=== PATIENT | male | born 1985 | race American Indian/Alaskan Native ===

== ENCOUNTER → 2017-11-30 | Outpatient (CLI) | payer OTHER ==
[~2017-11-30] MED LIST: ASPI325EC PO; BUSP10 PO; CLIN150 PO; HYDACE5 PO; HYDMOR2 PO; LISI5 PO; Levaquin750 MG PO; MELO7.5 PO; OXYACE5T PO; PARO10 PO; RXCLIN PO; RXHYDACE PO; Zofran Odt4 MG SL; [UNRECOGNIZED DRUG - REMARK]
[2017-11-30 14:47] LABS: BASOPHILS ABSOLUTE AUTO 0.03 K/mm3 (0.00-0.23); BASOPHILS PERCENT AUTO 1 % (0-2); EOSINOPHILS ABSOLUTE AUTO 0.03 K/mm3 (0.00-0.68); EOSINOPHILS PERCENT AUTO 1 % (0-6); Hematocrit 41.6 % (37.0-53.0); IMMATURE GRAN ABSOLUTE AUTO 0.01 K/mm3 (0.00-0.10); IMMATURE GRAN PERCENT AUTO 0 % (0-1); LYMPHOCYTES ABSOLUTE AUTO 1.48 K/mm3 (0.84-5.20); LYMPHOCYTES PERCENT AUTO 30 % (21-46); MONOCYTES ABSOLUTE AUTO 0.45 K/mm3 (0.16-1.47); MONOCYTES PERCENT AUTO 9 % (4-13); Mean Corpuscular HGB 30.7 pg (26.0-34.0); Mean Corpuscular HGB Conc 36.1 g/dL (31.5-36.5); Mean Corpuscular Volume 85 fL (80-100); Mean Platelet Volume 9.3 fL (9.1-12.4); NEUTROPHILS ABSOLUTE AUTO 2.93 K/mm3 (1.96-9.15); NEUTROPHILS PERCENT AUTO 60 % (41-73); Platelet Count 231 K/mm3 (150-400); RDW Coefficient Variation 12.4 % (11.7-14.2); RDW Standard Deviation 37.8 fL (35.1-46.3); Red Blood Cell Count 4.89 M/mm3 (4.30-5.90); White Blood Cell Count 4.93 K/mm3 (4.00-11.30)
== END | disposition home or self-care (01) ==
LOC: LAB EV 14:44
PROVIDERS: Family Medicine
DX: K62.5 Hemorrhage of anus and rectum (principal)
CPT/HCPCS: 85025

== ENCOUNTER → 2020-03-18 | Outpatient (CLI) | payer OTHER | END | disposition home or self-care (01) | LOC: LAB SHORT 14:52 → LAB EV 14:52 | DX: J02.9 Acute pharyngitis, unspecified (principal); Z20.828 Contact with and (suspected) exposure to other viral communicable diseases | CPT/HCPCS: U0003 ==

== ENCOUNTER 2021-07-07 16:17 | Observation (INO) | payer OTHER ==
[~2021-07-07] VITALS: Ht 175.3 cm; Wt 108.9 kg
[2021-07-07 16:51] LABS: Source, Urine Clean Catch
[2021-07-07 16:54] LABS: BASOPHILS ABSOLUTE AUTO 0.05 K/mm3 (0.00-0.23); BASOPHILS PERCENT AUTO 1 % (0-2); EOSINOPHILS ABSOLUTE AUTO 0.02 K/mm3 (0.00-0.68); EOSINOPHILS PERCENT AUTO 0 % (0-6); Hematocrit 45.8 % (37.0-53.0); Hemoglobin 16.2 g/dL (13.5-17.5); IMMATURE GRAN ABSOLUTE AUTO 0.01 K/mm3 (0.00-0.10); IMMATURE GRAN PERCENT AUTO 0 % (0-1); LYMPHOCYTES ABSOLUTE AUTO 1.86 K/mm3 (0.84-5.20); LYMPHOCYTES PERCENT AUTO 29 % (21-46); MONOCYTES PERCENT AUTO 9 % (4-13); Mean Corpuscular HGB 29.1 pg (26.0-34.0); Mean Corpuscular HGB Conc 35.4 g/dL (31.5-36.5); Mean Corpuscular Volume 82 fL (80-100); Mean Platelet Volume 9.2 fL (9.1-12.4); NEUTROPHILS ABSOLUTE AUTO 3.98 K/mm3 (1.96-9.15); NEUTROPHILS PERCENT AUTO 61 % (41-73); Platelet Count 290 K/mm3 (150-400); RDW Coefficient Variation 11.9 % (11.7-14.2); RDW Standard Deviation 36.1 fL (35.1-46.3); Red Blood Cell Count 5.56 M/mm3 (4.30-5.90); White Blood Cell Count 6.52 K/mm3 (4.00-11.30)
[2021-07-07 16:58] LABS: Appearance, Urine Clear (Clear); Bilirubin, Urine Neg (Neg); Blood, Urine Neg (Neg); Color, Urine Yellow (P-Yellow); Glucose Qualitative, Urine Neg (Neg); Ketones, Urine 2+ (Neg); Leukocyte Esterase, Urine 1+ (Neg); Nitrite, Urine Pos (Neg); Protein, Urine 2+ (Neg); Urobilinogen, Urine 1+ (Normal)
[2021-07-07 17:07] LABS: Bacteria Mod /hpf; Mucus Mod (0-Heavy); Squamous Epithelial Cells Few /hpf (Few)
[2021-07-07] MEDS ORDERED: PANT40 PO (17:07)
[2021-07-07] MEDS ORDERED: HYDHCL25 PO (17:07)
[2021-07-07 17:08] LABS: Amorphous Light (0-Heavy)
[2021-07-07] MEDS ORDERED: TRAZ50 PO (17:08)
[2021-07-07] MEDS ORDERED: PARO10 PO (17:09)
[2021-07-07] MEDS ORDERED: BUSP5 PO (17:09)
[2021-07-07 17:11] LABS: U Amphetamine Screen Not Detected; U Barbituate Screen Not Detected; U Benzodiazapine Screen Not Detected; U Buprenorphine Screen Not Detected; U Cannabinoids Screen Not Detected; U Cocaine Screen Not Detected; U Methadone Screen Not Detected; U Methamphetamine Screen Not Detected; U Opiates Screen Not Detected; U Oxycodone Screen Not Detected; U Phencyclidine Screen Not Detected; U Propoxyphene Screen Not Detected
[2021-07-07 17:17] LABS: Alanine Aminotransfer (ALT/SGP 125 U/L (12-78); Albumin, Blood 4.4 g/dL (3.4-5.0); Albumin/Globulin Ratio 1.3 (0.8-1.8); Alk Phos 50 U/L (50-136); Anion Gap 9 mmol/L (6-16); Aspartate Aminotrans (AST/SGOT 45 U/L (12-37); Bilirubin, Total 0.8 mg/dL (0.1-1.0); Blood Urea Nitrogen 11 mg/dL (8-24); Bun/Creatinine Ratio 12.6 (12.0-20.0); CO2, Blood 20 mmol/L (21-32); Calcium, Blood 9.5 mg/dL (8.5-10.1); Chloride, Blood 109 mmol/L (98-108); Creatinine, Blood 0.87 mg/dL (0.60-1.20); Ethanol (Alcohol), Blood, Med <3 mg/dL; Globulin, Blood 3.5 g/dL (2.2-4.0); Glomerular Filtration Rate >60 (60-); Glucose, Blood 93 mg/dL (70-99); Potassium, Blood 3.6 mmol/L (3.5-5.5); Salicylate <1.7 mg/dL (2.8-20.0); Sodium, Blood 138 mmol/L (136-145); Total Protein, Blood 7.9 g/dL (6.4-8.2)
[2021-07-07 17:26] LABS: Acetaminophen, Random <2.0 ug/mL (10.0-30.0)
[2021-07-07] MEDS ORDERED: Bactrim Ds Tab1 EACH PO (20:37)
[2021-07-07 23:55] LABS: SARS-Cov-2 (COVID-19) PCR, MMC NEGATIVE (NEGATIVE)
[2021-07-08] MEDS ORDERED: QUETIAPINE FUMA50 M1 PO (11:25)
[2021-07-08] MEDS ORDERED: LORA.5 PO (11:25)
== END 2021-07-08 12:33 | disposition home or self-care (01) ==
LOC: ER 16:17 → EOR 22:20
PROVIDERS: Physician Assistant; ADMIT Emergency Medicine
DX: F32.9 Major depressive disorder, single episode, unspecified (principal); I10 Essential (primary) hypertension; K21.9 Gastro-esophageal reflux disease without esophagitis; Z88.0 Allergy status to penicillin; Z79.82 Long term (current) use of aspirin; Z79.899 Other long term (current) drug therapy; Z20.822 Contact with and (suspected) exposure to COVID-19
CPT/HCPCS: 80053; 81001; 85025; 87086; 99285; A9270; G0378; G0480; Q3014; U0004

== ENCOUNTER 2021-07-10 04:42 | Observation (INO) | payer OTHER ==
[~2021-07-10] VITALS: Ht 175.3 cm; Wt 108.9 kg
[~2021-07-10 04:42] MED LIST changes: +BUSP5 PO; +Bactrim Ds Tab1 EACH PO; +HYDHCL25 PO; +LORA.5 PO; +PANT40 PO; +QUETIAPINE FUMA50 M1 PO; +TRAZ50 PO
[2021-07-10 05:37] LABS: BASOPHILS ABSOLUTE AUTO 0.04 K/mm3 (0.00-0.23); BASOPHILS PERCENT AUTO 1 % (0-2); EOSINOPHILS ABSOLUTE AUTO 0.04 K/mm3 (0.00-0.68); EOSINOPHILS PERCENT AUTO 1 % (0-6); Hematocrit 45.5 % (37.0-53.0); IMMATURE GRAN ABSOLUTE AUTO 0.01 K/mm3 (0.00-0.10); IMMATURE GRAN PERCENT AUTO 0 % (0-1); LYMPHOCYTES ABSOLUTE AUTO 1.34 K/mm3 (0.84-5.20); LYMPHOCYTES PERCENT AUTO 34 % (21-46); MONOCYTES ABSOLUTE AUTO 0.35 K/mm3 (0.16-1.47); MONOCYTES PERCENT AUTO 9 % (4-13); Mean Corpuscular HGB 30.1 pg (26.0-34.0); Mean Corpuscular HGB Conc 35.2 g/dL (31.5-36.5); Mean Corpuscular Volume 86 fL (80-100); Mean Platelet Volume 9.2 fL (9.1-12.4); NEUTROPHILS ABSOLUTE AUTO 2.11 K/mm3 (1.96-9.15); NEUTROPHILS PERCENT AUTO 54 % (41-73); Platelet Count 206 K/mm3 (150-400); RDW Coefficient Variation 12.3 % (11.7-14.2); RDW Standard Deviation 38.3 fL (35.1-46.3); Red Blood Cell Count 5.32 M/mm3 (4.30-5.90); White Blood Cell Count 3.89 K/mm3 (4.00-11.30)
[2021-07-10 06:05] LABS: Alanine Aminotransfer (ALT/SGP 122 U/L (12-78); Albumin, Blood 3.9 g/dL (3.4-5.0); Albumin/Globulin Ratio 1.1 (0.8-1.8); Alk Phos 49 U/L (50-136); Anion Gap 7 mmol/L (6-16); Aspartate Aminotrans (AST/SGOT 42 U/L (12-37); Bilirubin, Total 0.5 mg/dL (0.1-1.0); Blood Urea Nitrogen 13 mg/dL (8-24); Bun/Creatinine Ratio 11.5 (12.0-20.0); CO2, Blood 26 mmol/L (21-32); Chloride, Blood 108 mmol/L (98-108); Creatinine, Blood 1.13 mg/dL (0.60-1.20); Ethanol (Alcohol), Blood, Med <3 mg/dL; Globulin, Blood 3.5 g/dL (2.2-4.0); Glomerular Filtration Rate >60 (60-); Glucose, Blood 93 mg/dL (70-99); Potassium, Blood 3.9 mmol/L (3.5-5.5); Salicylate <1.7 mg/dL (2.8-20.0); Sodium, Blood 141 mmol/L (136-145); Thyroxine (T4) 8.8 ug/dL (4.5-12.1); Total Protein, Blood 7.4 g/dL (6.4-8.2)
[2021-07-10 06:06] LABS: Acetaminophen, Random <2.0 ug/mL (10.0-30.0)
[2021-07-10 06:45] LABS: Source, Urine Clean Catch
[2021-07-10 06:57] LABS: Bilirubin, Urine Neg (Neg); Blood, Urine 1+ (Neg); Glucose Qualitative, Urine Neg (Neg); Ketones, Urine Neg (Neg); Leukocyte Esterase, Urine Neg (Neg); Nitrite, Urine Neg (Neg); Protein, Urine 1+ (Neg); Specific Gravity, Urine 1.025 (1.003-1.022); Urobilinogen, Urine 1+ (Normal)
[2021-07-10 07:00] LABS: Appearance, Urine Clear (Clear); Color, Urine Yellow (P-Yellow)
[2021-07-10 07:04] LABS: Bacteria Rare /hpf; Red Blood Cells, Urine 0-2 /hpf (0-2); Squamous Epithelial Cells Rare /hpf (Few)
[2021-07-10 07:05] LABS: Mucus Heavy (0-Heavy)
[2021-07-10 07:17] LABS: U Amphetamine Screen Not Detected; U Barbituate Screen Not Detected; U Benzodiazapine Screen DETECTED; U Buprenorphine Screen Not Detected; U Cannabinoids Screen Not Detected; U Cocaine Screen Not Detected; U Methadone Screen Not Detected; U Methamphetamine Screen Not Detected; U Opiates Screen Not Detected; U Oxycodone Screen Not Detected; U Phencyclidine Screen Not Detected; U Propoxyphene Screen Not Detected
[2021-07-10 09:28] LABS: SARS-Cov-2 (COVID-19) PCR, MMC NEGATIVE (NEGATIVE)
== END 2021-07-10 21:26 ==
LOC: ER 04:42 → EOR 04:43
PROVIDERS: Student in an Organized Health Care Education/Training Program; ADMIT Emergency Medicine
DX: F33.2 Major depressive disorder, recurrent severe without psychotic features (principal); F41.0 Panic disorder [episodic paroxysmal anxiety]; G47.00 Insomnia, unspecified; I10 Essential (primary) hypertension; K21.9 Gastro-esophageal reflux disease without esophagitis; K58.9 Irritable bowel syndrome, unspecified; Z96.652 Presence of left artificial knee joint; Z20.822 Contact with and (suspected) exposure to COVID-19
CPT/HCPCS: 80053; 81001; 84436; 84443; 85025; 99285; A9270; G0378; G0480; Q3014; U0004

== ENCOUNTER → 2021-09-21 | Outpatient (CLI) | payer OTHER ==
[2021-09-21 17:11] LABS: Source, Urine Voided
[2021-09-21 18:58] LABS: Appearance, Urine Clear (Clear); Bilirubin, Urine Neg (Neg); Blood, Urine Neg (Neg); Color, Urine Yellow (P-Yellow); Glucose Qualitative, Urine Neg (Neg); Ketones, Urine Neg (Neg); Leukocyte Esterase, Urine Neg (Neg); Nitrite, Urine Neg (Neg); Protein, Urine Neg (Neg); Urobilinogen, Urine 2+ (Normal)
== END ==
LOC: LAB 17:09 → LAB SHORT 17:09
PROVIDERS: Physician Assistant Medical
DX: R10.30 Lower abdominal pain, unspecified (principal)
CPT/HCPCS: 81003

== ENCOUNTER 2021-10-02 20:35 | Emergency (ER) | payer OTHER ==
[~2021-10-02] VITALS: Ht 180.3 cm; Wt 108.0 kg
[2021-10-02] MEDS ORDERED: ONDA4 PO (21:20)
== END 2021-10-02 21:51 | disposition home or self-care (01) ==
LOC: ER 20:35
DX: J06.9 Acute upper respiratory infection, unspecified (principal); Z20.822 Contact with and (suspected) exposure to COVID-19; Z88.0 Allergy status to penicillin; Z88.1 Allergy status to other antibiotic agents; Z88.8 Allergy status to other drugs, medicaments and biological substances; Z79.899 Other long term (current) drug therapy
CPT/HCPCS: 99284; A9270

== ENCOUNTER 2021-11-17 12:25 | Day surgery (SDC) | payer OTHER ==
[~2021-11-17] VITALS: Ht 175.3 cm; Wt 104.6 kg
[~2021-11-17 12:25] MED LIST changes: +ALBU90OI INH; +ATOR20 PO; +NAPR500EC PO; +ONDA4 PO; +PAXIL40 MG PO; +TRAZ100 PO
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
== END 2021-11-17 14:27 | disposition home or self-care (01) ==
LOC: ORSCSDS 12:25
DX: K21.9 Gastro-esophageal reflux disease without esophagitis (principal); K31.7 Polyp of stomach and duodenum; K20.90 Esophagitis, unspecified without bleeding; K29.60 Other gastritis without bleeding; I10 Essential (primary) hypertension; R73.03 Prediabetes; G47.33 Obstructive sleep apnea (adult) (pediatric); F41.8 Other specified anxiety disorders; J45.909 Unspecified asthma, uncomplicated; Z80.0 Family history of malignant neoplasm of digestive organs; E78.5 Hyperlipidemia, unspecified; E66.9 Obesity, unspecified; Z68.34 Body mass index [BMI] 34.0-34.9, adult; Z79.899 Other long term (current) drug therapy
CPT/HCPCS: 88305; 88342; J2250; J2704; J7120

== ENCOUNTER → 2022-09-23 | Outpatient (CLI) | payer OTHER | END | disposition home or self-care (01) | LOC: LAB SHORT 13:32 | DX: R31.9 Hematuria, unspecified (principal) | CPT/HCPCS: 87086 ==

== ENCOUNTER 2023-08-21 14:18 | Emergency (ER) | payer OTHER ==
[~2023-08-21] VITALS: Ht 172.7 cm; Wt 104.3 kg
[2023-08-21 14:39] LABS: BASOPHILS ABSOLUTE AUTO 0.08 K/mm3 (0.00-0.23); BASOPHILS PERCENT AUTO 1 % (0-2); EOSINOPHILS ABSOLUTE AUTO 0.07 K/mm3 (0.00-0.68); EOSINOPHILS PERCENT AUTO 1 % (0-6); Hematocrit 47.8 % (37.0-53.0); IMMATURE GRAN ABSOLUTE AUTO 0.02 K/mm3 (0.00-0.10); IMMATURE GRAN PERCENT AUTO 0 % (0-1); LYMPHOCYTES ABSOLUTE AUTO 1.12 K/mm3 (0.84-5.20); LYMPHOCYTES PERCENT AUTO 13 % (21-46); MONOCYTES ABSOLUTE AUTO 0.78 K/mm3 (0.16-1.47); MONOCYTES PERCENT AUTO 9 % (4-13); Mean Corpuscular HGB 30.3 pg (26.0-34.0); Mean Corpuscular HGB Conc 35.6 g/dL (31.5-36.5); Mean Corpuscular Volume 85 fL (80-100); Mean Platelet Volume 9.1 fL (9.1-12.4); NEUTROPHILS ABSOLUTE AUTO 6.66 K/mm3 (1.96-9.15); NEUTROPHILS PERCENT AUTO 76 % (41-73); Platelet Count 246 K/mm3 (150-400); RDW Coefficient Variation 12.3 % (11.7-14.2); RDW Standard Deviation 38.3 fL (35.1-46.3); Red Blood Cell Count 5.61 M/mm3 (4.30-5.90); White Blood Cell Count 8.73 K/mm3 (4.00-11.30)
[2023-08-21 15:01] LABS: Albumin, Blood 4.4 g/dL (3.4-5.0); Albumin/Globulin Ratio 1.2 (0.8-1.8); Bilirubin, Total 0.7 mg/dL (0.1-1.0); Bun/Creatinine Ratio 12.1 (12.0-20.0); Calcium, Blood 9.4 mg/dL (8.5-10.1); Creatinine, Blood 0.99 mg/dL (0.60-1.20); Globulin, Blood 3.7 g/dL (2.2-4.0); Potassium, Blood 3.8 mmol/L (3.5-5.5); Total Protein, Blood 8.1 g/dL (6.4-8.2)
[2023-08-21 15:42] LABS: Source, Urine Clean Catch
[2023-08-21 15:49] LABS: Appearance, Urine Clear (Clear); Bilirubin, Urine Neg (Neg); Blood, Urine Neg (Neg); Color, Urine Yellow (P-Yellow); Glucose Qualitative, Urine Neg (Neg); Ketones, Urine Neg (Neg); Leukocyte Esterase, Urine Neg (Neg); Nitrite, Urine Neg (Neg); Protein, Urine Neg (Neg); Specific Gravity, Urine 1.025 (1.003-1.022); Urobilinogen, Urine NORM (Normal)
[2023-08-21 17:45] VITALS: BP 128/73
[2023-08-21] MEDS ORDERED: ONDA4 PO (18:01)
[2023-08-21] MEDS ORDERED: OMEP20ER PO (18:01)
== END 2023-08-21 18:00 | disposition home or self-care (01) ==
LOC: ER 14:18
PROVIDERS: Student in an Organized Health Care Education/Training Program
DX: K80.50 Calculus of bile duct without cholangitis or cholecystitis without obstruction (principal); Z88.8 Allergy status to other drugs, medicaments and biological substances; Z79.899 Other long term (current) drug therapy
CPT/HCPCS: 76705; 80053; 81003; 83690; 85025; 96361; 96374; 96375; 99284-25; A9270; J1885; J2405; J7030

== ENCOUNTER 2024-03-28 10:24 | Observation (INO) | payer OTHER ==
[~2024-03-28] VITALS: Ht 175.3 cm; Wt 106.6 kg
[~2024-03-28 10:24] MED LIST changes: +OMEP20ER PO
[2024-03-28 11:49] LABS: BASOPHILS ABSOLUTE AUTO 0.03 K/mm3 (0.00-0.23); BASOPHILS PERCENT AUTO 1 % (0-2); EOSINOPHILS ABSOLUTE AUTO 0.02 K/mm3 (0.00-0.68); EOSINOPHILS PERCENT AUTO 0 % (0-6); Hematocrit 44.7 % (37.0-53.0); Hemoglobin 15.9 g/dL (13.5-17.5); IMMATURE GRAN ABSOLUTE AUTO 0.01 K/mm3 (0.00-0.10); IMMATURE GRAN PERCENT AUTO 0 % (0-1); LYMPHOCYTES ABSOLUTE AUTO 1.54 K/mm3 (0.84-5.20); LYMPHOCYTES PERCENT AUTO 25 % (21-46); MONOCYTES ABSOLUTE AUTO 0.36 K/mm3 (0.16-1.47); MONOCYTES PERCENT AUTO 6 % (4-13); Mean Corpuscular HGB 29.9 pg (26.0-34.0); Mean Corpuscular HGB Conc 35.6 g/dL (31.5-36.5); Mean Corpuscular Volume 84 fL (80-100); Mean Platelet Volume 9.4 fL (9.1-12.4); NEUTROPHILS ABSOLUTE AUTO 4.18 K/mm3 (1.96-9.15); NEUTROPHILS PERCENT AUTO 68 % (41-73); Platelet Count 263 K/mm3 (150-400); RDW Coefficient Variation 12.4 % (11.7-14.2); RDW Standard Deviation 37.3 fL (35.1-46.3); Red Blood Cell Count 5.32 M/mm3 (4.30-5.90); White Blood Cell Count 6.14 K/mm3 (4.00-11.30)
[2024-03-28 12:03] LABS: Ethanol (Alcohol), Blood, Med <3 mg/dL; Salicylate <1.7 mg/dL (2.8-20.0)
[2024-03-28 12:18] LABS: Source, Urine Clean Catch
[2024-03-28 12:28] LABS: Appearance, Urine Clear (Clear); Bilirubin, Urine Neg (Neg); Blood, Urine Neg (Neg); Color, Urine Yellow (P-Yellow); Glucose Qualitative, Urine Neg (Neg); Ketones, Urine 1+ (Neg); Leukocyte Esterase, Urine Neg (Neg); Nitrite, Urine Neg (Neg); Protein, Urine 2+ (Neg); Urobilinogen, Urine NORM (Normal)
[2024-03-28 12:47] LABS: Acetaminophen, Random <2.0 ug/mL (10.0-30.0); Alanine Aminotransfer (ALT/SGP 76 U/L (12-78); Albumin, Blood 4.3 g/dL (3.4-5.0); Albumin/Globulin Ratio 1.2 (0.8-1.8); Alk Phos 57 U/L (50-136); Anion Gap 10 mmol/L (3-11); Aspartate Aminotrans (AST/SGOT 30 U/L (12-37); Bilirubin, Total 0.6 mg/dL (0.1-1.0); Blood Urea Nitrogen 11 mg/dL (8-24); Bun/Creatinine Ratio 11.8 (12.0-20.0); CO2, Blood 26 mmol/L (21-32); Calcium, Blood 9.6 mg/dL (8.5-10.1); Chloride, Blood 108 mmol/L (98-108); Creatinine, Blood 0.93 mg/dL (0.60-1.20); Globulin, Blood 3.5 g/dL (2.2-4.0); Glomerular Filtration Rate 108 (60-); Glucose, Blood 102 mg/dL (70-99); Potassium, Blood 3.7 mmol/L (3.5-5.5); Sodium, Blood 140 mmol/L (136-145); Total Protein, Blood 7.8 g/dL (6.4-8.2)
[2024-03-28 12:47] LABS: Bacteria Rare /hpf; Mucus Heavy (0-Heavy); Red Blood Cells, Urine 0-2 /hpf (0-2); Squamous Epithelial Cells Not Seen /hpf (Few); White Blood Cells, Urine 0-2 /hpf (0-5)
[2024-03-28 12:51] LABS: U Amphetamine Screen Not Detected; U Barbituate Screen Not Detected; U Benzodiazapine Screen Not Detected; U Buprenorphine Screen Not Detected; U Cannabinoids Screen Not Detected; U Cocaine Screen Not Detected; U Methadone Screen Not Detected; U Methamphetamine Screen Not Detected; U Opiates Screen Not Detected; U Oxycodone Screen Not Detected; U Phencyclidine Screen Not Detected
[2024-03-28 13:09] LABS: Influenza A, PCR NEGATIVE (NEGATIVE); Influenza B, PCR NEGATIVE (NEGATIVE); Resp Syncytial Virus, PCR NEGATIVE (NEGATIVE); SARS-Cov-2 (COVID-19) PCR, MMC NEGATIVE (NEGATIVE)
[2024-03-28] MEDS ORDERED: PARoxetine HCl 20 MG Tab PO ONE (14:25)
[2024-03-28] MEDS ORDERED: OLANZapine 10 MG Vial IM PRN (14:30)
[2024-03-28] MEDS ORDERED: TraZODone HCl 100 MG Tab PO SCH (21:00)
[2024-03-29] MEDS ORDERED: PARoxetine HCl 20 MG Tab PO SCH (09:00)
[2024-03-29 09:24] VITALS: BP 135/98
[2024-03-29] MEDS ORDERED: PAXIL40 M1 PO (15:24)
== END 2024-03-29 15:09 | disposition home or self-care (01) ==
LOC: ER 10:24 → EOR 10:25
PROVIDERS: Emergency Medicine; Student in an Organized Health Care Education/Training Program; ADMIT Emergency Medicine
DX: F33.9 Major depressive disorder, recurrent, unspecified (principal); K21.9 Gastro-esophageal reflux disease without esophagitis; Z88.0 Allergy status to penicillin; Z88.8 Allergy status to other drugs, medicaments and biological substances; Z79.899 Other long term (current) drug therapy
CPT/HCPCS: 0241U; 36415; 80053; 81001; 85025; 93005; 93010; 99285-25; A9270; G0378; G0480

== ENCOUNTER 2024-03-29 15:13 | Observation (INO) | payer OTHER ==
[~2024-03-29] VITALS: Ht 175.3 cm; Wt 106.6 kg
[2024-03-29] MEDS ORDERED: PAXIL40 M1 PO (15:24)
[2024-03-29 16:12] LABS: U Amphetamine Screen Not Detected; U Barbituate Screen Not Detected; U Benzodiazapine Screen Not Detected; U Buprenorphine Screen Not Detected; U Cannabinoids Screen Not Detected; U Cocaine Screen Not Detected; U Methadone Screen Not Detected; U Methamphetamine Screen Not Detected; U Opiates Screen Not Detected; U Oxycodone Screen Not Detected; U Phencyclidine Screen Not Detected
[2024-03-29 17:06] LABS: Salicylate <1.7 mg/dL (2.8-20.0)
[2024-03-29 17:22] LABS: Ethanol (Alcohol), Blood, Med <3 mg/dL
[2024-03-29] MEDS ORDERED: TraZODone HCl 50 MG Tab PO SCH (21:00)
[2024-03-29] MEDS ORDERED: TraZODone HCl 50 MG Tab ONE (21:24)
[2024-03-29] MEDS ORDERED: TraZODone HCl 100 MG Tab ONE (21:25)
[2024-03-30] MEDS ORDERED: TraZODone HCl 100 MG Tab PO SCH (21:00)
[2024-03-30] MEDS ORDERED: QUEtiapine Fumarate 25 MG Tab PO SCH (21:00)
[2024-03-31] MEDS ORDERED: PARoxetine HCl 20 MG Tab PO SCH (08:00)
[2024-03-31 11:17] VITALS: BP 136/90
[2024-03-31] MEDS ORDERED: QUEtiapine Fumarate 100 MG Tab PO SCH (21:00)
[2024-03-31] MEDS ORDERED: TraZODone HCl 100 MG Tab PO SCH (21:00)
== END 2024-03-31 13:40 ==
LOC: ER 15:13 → EOR 15:14
PROVIDERS: Nurse Practitioner; ADMIT Emergency Medicine
DX: F33.3 Major depressive disorder, recurrent, severe with psychotic symptoms (principal); Z88.0 Allergy status to penicillin; Z88.8 Allergy status to other drugs, medicaments and biological substances; Z79.899 Other long term (current) drug therapy
CPT/HCPCS: 99285; A9270; G0378; G0480

== ENCOUNTER 2024-04-17 08:47 | Observation (INO) | payer OTHER ==
[~2024-04-17] VITALS: Ht 175.3 cm; Wt 105.7 kg
[~2024-04-17 08:47] MED LIST changes: +PAXIL40 M1 PO
[2024-04-17] MEDS ORDERED: HYDPAM50 PO (09:48)
[2024-04-17] MEDS ORDERED: VENL150ER PO (09:48)
[2024-04-17] MEDS ORDERED: HyDROXyzine HCl 25 MG Tab PO PRN (15:40)
[2024-04-17 19:29] LABS: BASOPHILS ABSOLUTE AUTO 0.04 K/mm3 (0.00-0.23); BASOPHILS PERCENT AUTO 1 % (0-2); EOSINOPHILS ABSOLUTE AUTO 0.04 K/mm3 (0.00-0.68); EOSINOPHILS PERCENT AUTO 1 % (0-6); Hematocrit 41.2 % (37.0-53.0); Hemoglobin 14.3 g/dL (13.5-17.5); IMMATURE GRAN PERCENT AUTO 0 % (0-1); LYMPHOCYTES ABSOLUTE AUTO 1.47 K/mm3 (0.84-5.20); LYMPHOCYTES PERCENT AUTO 33 % (21-46); MONOCYTES ABSOLUTE AUTO 0.43 K/mm3 (0.16-1.47); MONOCYTES PERCENT AUTO 10 % (4-13); Mean Corpuscular HGB Conc 34.7 g/dL (31.5-36.5); Mean Corpuscular Volume 87 fL (80-100); Mean Platelet Volume 9.7 fL (9.1-12.4); NEUTROPHILS ABSOLUTE AUTO 2.49 K/mm3 (1.96-9.15); NEUTROPHILS PERCENT AUTO 56 % (41-73); Platelet Count 222 K/mm3 (150-400); RDW Coefficient Variation 12.6 % (11.7-14.2); RDW Standard Deviation 39.7 fL (35.1-46.3); Red Blood Cell Count 4.76 M/mm3 (4.30-5.90); White Blood Cell Count 4.47 K/mm3 (4.00-11.30)
[2024-04-17 19:44] LABS: Ethanol (Alcohol), Blood, Med <3 mg/dL; Salicylate <1.7 mg/dL (2.8-20.0); Thyroxine (T4) 8.9 ug/dL (4.5-12.1)
[2024-04-17 19:58] LABS: Alanine Aminotransfer (ALT/SGP 61 U/L (12-78); Albumin, Blood 3.9 g/dL (3.4-5.0); Albumin/Globulin Ratio 1.2 (0.8-1.8); Alk Phos 47 U/L (50-136); Anion Gap 10 mmol/L (3-11); Aspartate Aminotrans (AST/SGOT 25 U/L (12-37); Blood Urea Nitrogen 14 mg/dL (8-24); Bun/Creatinine Ratio 16.6 (12.0-20.0); CO2, Blood 23 mmol/L (21-32); Calcium, Blood 8.7 mg/dL (8.5-10.1); Chloride, Blood 111 mmol/L (98-108); Creatinine, Blood 0.84 mg/dL (0.60-1.20); Globulin, Blood 3.2 g/dL (2.2-4.0); Glomerular Filtration Rate 114 (60-); Glucose, Blood 90 mg/dL (70-99); Potassium, Blood 3.6 mmol/L (3.5-5.5); Sodium, Blood 140 mmol/L (136-145); Total Protein, Blood 7.1 g/dL (6.4-8.2)
[2024-04-17 19:59] LABS: Acetaminophen, Random <2.0 ug/mL (10.0-30.0)
[2024-04-17] MEDS ORDERED: TraZODone HCl 100 MG Tab PO SCH (21:00)
[2024-04-18 08:29] LABS: Source, Urine Clean Catch
[2024-04-18 08:32] LABS: Appearance, Urine Clear (Clear); Bilirubin, Urine Neg (Neg); Blood, Urine Neg (Neg); Color, Urine Yellow (P-Yellow); Glucose Qualitative, Urine Neg (Neg); Ketones, Urine Neg (Neg); Leukocyte Esterase, Urine Neg (Neg); Nitrite, Urine Neg (Neg); Protein, Urine Neg (Neg); Specific Gravity, Urine 1.025 (1.003-1.022); Urobilinogen, Urine 2+ (Normal)
[2024-04-18 08:48] LABS: U Amphetamine Screen Not Detected; U Barbituate Screen Not Detected; U Benzodiazapine Screen Not Detected; U Buprenorphine Screen Not Detected; U Cannabinoids Screen Not Detected; U Cocaine Screen Not Detected; U Methadone Screen Not Detected; U Methamphetamine Screen Not Detected; U Opiates Screen Not Detected; U Oxycodone Screen Not Detected; U Phencyclidine Screen Not Detected
[2024-04-18] MEDS ORDERED: Venlafaxine HCl 75 MG CapCR PO SCH (09:00)
[2024-04-18 19:16] VITALS: BP 130/79
== END 2024-04-18 20:44 ==
LOC: ER 08:47 → EOR 08:48 → EDBEDREQSVC 04-18 08:58 → EDBEDREQ 04-18 08:58 → EOR 04-18 20:44
PROVIDERS: Physician Assistant; ADMIT Emergency Medicine
DX: F33.3 Major depressive disorder, recurrent, severe with psychotic symptoms (principal); R45.851 Suicidal ideations; Z88.0 Allergy status to penicillin; Z88.8 Allergy status to other drugs, medicaments and biological substances
CPT/HCPCS: 80053; 81003; 84436; 84443; 85025; 93005; 93010; 99285-25; A9270; G0378; G0480

== ENCOUNTER 2024-05-03 14:09 | Emergency (ER) | payer OTHER ==
[~2024-05-03] VITALS: Ht 175.3 cm; Wt 104.3 kg
[~2024-05-03 14:09] MED LIST changes: +HYDPAM50 PO; +VENL150ER PO
[2024-05-03 14:26] VITALS: BP 125/70
[2024-05-03 14:54] LABS: BASOPHILS ABSOLUTE AUTO 0.03 K/mm3 (0.00-0.23); BASOPHILS PERCENT AUTO 1 % (0-2); EOSINOPHILS ABSOLUTE AUTO 0.04 K/mm3 (0.00-0.68); EOSINOPHILS PERCENT AUTO 1 % (0-6); Hematocrit 43.9 % (37.0-53.0); Hemoglobin 15.4 g/dL (13.5-17.5); IMMATURE GRAN ABSOLUTE AUTO 0.01 K/mm3 (0.00-0.10); IMMATURE GRAN PERCENT AUTO 0 % (0-1); LYMPHOCYTES ABSOLUTE AUTO 1.37 K/mm3 (0.84-5.20); LYMPHOCYTES PERCENT AUTO 29 % (21-46); MONOCYTES ABSOLUTE AUTO 0.27 K/mm3 (0.16-1.47); MONOCYTES PERCENT AUTO 6 % (4-13); Mean Corpuscular HGB Conc 35.1 g/dL (31.5-36.5); Mean Corpuscular Volume 86 fL (80-100); Mean Platelet Volume 9.4 fL (9.1-12.4); NEUTROPHILS ABSOLUTE AUTO 3.04 K/mm3 (1.96-9.15); NEUTROPHILS PERCENT AUTO 64 % (41-73); Platelet Count 228 K/mm3 (150-400); RDW Coefficient Variation 12.5 % (11.7-14.2); RDW Standard Deviation 39.1 fL (35.1-46.3); Red Blood Cell Count 5.13 M/mm3 (4.30-5.90); White Blood Cell Count 4.76 K/mm3 (4.00-11.30)
[2024-05-03 15:22] LABS: Acetaminophen, Random <2.0 ug/mL (10.0-30.0); Alanine Aminotransfer (ALT/SGP 77 U/L (12-78); Albumin/Globulin Ratio 1.2 (0.8-1.8); Alk Phos 56 U/L (50-136); Anion Gap 12 mmol/L (3-11); Aspartate Aminotrans (AST/SGOT 30 U/L (12-37); Bilirubin, Total 0.7 mg/dL (0.1-1.0); Blood Urea Nitrogen 13 mg/dL (8-24); Bun/Creatinine Ratio 13.9 (12.0-20.0); CO2, Blood 23 mmol/L (21-32); Calcium, Blood 8.8 mg/dL (8.5-10.1); Chloride, Blood 110 mmol/L (98-108); Creatinine, Blood 0.93 mg/dL (0.60-1.20); Ethanol (Alcohol), Blood, Med <3 mg/dL; Globulin, Blood 3.3 g/dL (2.2-4.0); Glomerular Filtration Rate 108 (60-); Glucose, Blood 162 mg/dL (70-99); Potassium, Blood 3.6 mmol/L (3.5-5.5); Salicylate <1.7 mg/dL (2.8-20.0); Sodium, Blood 141 mmol/L (136-145); Thyroxine (T4) 9.3 ug/dL (4.5-12.1); Total Protein, Blood 7.3 g/dL (6.4-8.2)
[2024-05-03 15:44] LABS: Source, Urine Clean Catch
[2024-05-03 15:47] LABS: Appearance, Urine Clear (Clear); Bilirubin, Urine Neg (Neg); Blood, Urine Neg (Neg); Color, Urine Yellow (P-Yellow); Glucose Qualitative, Urine Neg (Neg); Ketones, Urine Neg (Neg); Leukocyte Esterase, Urine Neg (Neg); Nitrite, Urine Neg (Neg); Protein, Urine 1+ (Neg); Specific Gravity, Urine 1.025 (1.003-1.022); Urobilinogen, Urine 3+ (Normal)
[2024-05-03 16:05] LABS: U Amphetamine Screen Not Detected; U Barbituate Screen Not Detected; U Benzodiazapine Screen Not Detected; U Buprenorphine Screen Not Detected; U Cannabinoids Screen Not Detected; U Cocaine Screen Not Detected; U Methadone Screen Not Detected; U Methamphetamine Screen Not Detected; U Opiates Screen Not Detected; U Oxycodone Screen Not Detected; U Phencyclidine Screen Not Detected
== END 2024-05-03 19:26 | disposition other institution (70) ==
LOC: ER 14:09
PROVIDERS: Student in an Organized Health Care Education/Training Program
DX: R45.851 Suicidal ideations (principal); Z88.0 Allergy status to penicillin; Z88.8 Allergy status to other drugs, medicaments and biological substances; Z79.899 Other long term (current) drug therapy
CPT/HCPCS: 80053; 84436; 84443; 85025; 99285-25; G0480

== ENCOUNTER 2024-05-03 16:57 | Inpatient (IN) | payer OTHER ==
[~2024-05-03] VITALS: Ht 175.3 cm; Wt 98.0 kg
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
[2024-05-03] MEDS ORDERED: OLANZapine ODT 10 MG Tab MM PRN (22:20)
[2024-05-03] MEDS ORDERED: LORazepam 2 MG Tab PO PRN (22:20)
[2024-05-03] MEDS ORDERED: DiphenhydrAMINE HCl 50 MG/ML 1ML Vial IM PRN ×2 (22:20→22:40)
[2024-05-03] MEDS ORDERED: Haloperidol Lactate Inj. 5 MG/ML Injection IM PRN ×2 (22:20→22:40)
[2024-05-03] MEDS ORDERED: Haloperidol 5 MG Tab PO PRN ×2 (22:20→22:40)
[2024-05-03] MEDS ORDERED: LORazepam 2 MG/ML 1ML Injection IM PRN ×2 (22:20→22:40)
[2024-05-03] MEDS ORDERED: DiphenhydrAMINE HCl 50 MG Cap PO PRN ×2 (22:25→22:40)
[2024-05-03] MEDS ORDERED: TraZODone HCl 50 MG Tab PO PRN (22:40)
[2024-05-03] MEDS ORDERED: LORazepam 1 MG Tab PO PRN (22:40)
[2024-05-03] MEDS ORDERED: HydrOXYzine Pamoate 50 MG Cap PO PRN (22:40)
--- NOTE | 2024-05-03 22:55 | NUR ---
Patients belongings have been washed and dried. Patients phone was charged for 1.5 hrs. 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
--- NOTE | 2024-05-03 22:57 | NUR ---
During belonging check in with patient and Chaz RICCI) the patients stated that he should have had an additional $140.00 that was not present at [facility] check in. The patient contacted his mother to see if he left it there and he did not. The patient came from [facility]. patient should call [facility] tomorrow to see if it was left there. We will need to allow the patient to call [facility] to see if it is there. Luli called [facility] and they do not have the monies.
[2024-05-04 08:36] VITALS: BP 135/71
[2024-05-04] MEDS ORDERED: Venlafaxine HCl 37.5 MG CapCR PO SCH (09:00)
--- NOTE | 2024-05-04 09:08 | NUR ---
CALLED [facility] TO FIND OUT IF PATIENT HAD $140.00 LEFT OVER THERE AT THEIR FACILITY. AFTER BEING TRANSFERED TO [facility] ALL AREAS HAD SAID THAT THEY DID NOT HAVE IT IN THEIR LOCK UP AREAS. WILL LET PATIENT KNOW WHEN I INTERVIEW HIM AFTER HIS MORNING NAP
[2024-05-04] MEDS ORDERED: Peg 400/Hypromellose/Glycerin 15 DROP/ML BTL BOTHEYES PRN (13:10)
[2024-05-04] MEDS ORDERED: POLYVINYL ALCOHOL 1.4% Ophthalmic Solution 15 ML BTL BOTHEYES PRN (13:20)
--- NOTE | 2024-05-04 17:16 | NUR ---
SHIFT SUMMARY WAS UP WATCHING MOVIE THEN WENT TO TAKE A NAP BEFORE DINNER. STILL DENIES SI. STATES HE HAS NO ISSUES AT THIS TIME. GIVEN EYE DROPS FOR RIGHT EYE. MET WITH SW AND OT TODAY. POSITIVE MOOD. WILL CONTINUE TO MONITOR.
[2024-05-04 18:54] VITALS: BP 131/92
[2024-05-04 20:37] VITALS: BP 153/84
[2024-05-05 08:39] VITALS: BP 133/96
[2024-05-05] MEDS ORDERED: Sertraline HCl 100 MG Tab PO SCH ×2 (09:00→09:01)
--- NOTE | 2024-05-05 18:05 | NUR ---
SHIFT SUMMARY PT A&OX4, PLEASANT AND COOPERATIVE. INTERACTIVE W/ MILEU. PT DENIES SI THIS SHIFT, VISITING W/ OTHER PATIENTS AND SMILING. EATING WELL. NO ACUTE OR MH CHANGES THIS SHIFT.
[2024-05-05 19:53] VITALS: BP 153/92
[2024-05-05] MEDS ORDERED: TraZODone HCl 100 MG Tab PO SCH (21:00)
[2024-05-06] MEDS ORDERED: Sertraline HCl 100 MG Tab PO SCH (09:00)
--- NOTE | 2024-05-06 12:04 | NUR ---
NURSING ASSESSMENT PT A&OX4, COOPERATIVE AND PLEASANT. PT SMILING AND JOKING WITH STAFF/ MILEU. PT REPORTS FEELING GOOD TODAY AND DENIES SI AT THIS TIME. PT REPORTS NEW MEDICATIONS AND NO ADVERSE SIDE EFFECTS NOTED AT THIS TIME. WILL CONTINUE TO MONITOR.
[2024-05-06 20:29] VITALS: BP 125/77
[2024-05-07 09:09] VITALS: BP 148/84
--- NOTE | 2024-05-07 11:29 | NUR ---
Macarena contacted [facility] by phone [phone] from 1108am to 1114am and spoke to technical support representative Joycelyn. Per Joycelyn, [facility] will need to be contacted on the exact date of discharge in place of 2 days in advance due to pt being in a hospital facility.
--- NOTE | 2024-05-07 17:51 | NUR ---
SHIFT SUMMARY PT A/O X4; PLEASANT AND COOPERATIVE WITH CARE. PT REPORTS THAT HE IS DOING WELL AND DENIES SI, HI, AH, VH, TH. PT WILL MOST LIKELY DC HOME TOMORROW. HE HAS AN APPOINTMENT TO FOLLOW UP WITH ENEDINA PAUL AT [facility]. PT PARTICIPATING IN GROUP AND INTERACTING APPROPRIATELY WITH OTHER PATIENTS AND STAFF.
--- NOTE | 2024-05-07 19:54 | NUR ---
PATIENT UP IN THE SENORY ROOM USING THE [employer] REALITY SET. INTERVIEWED AND DENIES TO BE SI. STATED THAT HIS DEPRESSION AND ANXIETY IS A LOT BETTER AND HE FEELS GOOD NOW SINCE WHEN HE WAS ADMITTED. IS LOOKING FORWARD TO BEING DISCHARGED TOMORROW AND HIS BIRTHDAY IS COMING ON 05/12[birth year]24 AND HE WANTS [facility]. STATED [employer] IS REALLY HELPING HIM. RIGHT EYE IS OENED ND LESS REDNESS ROM A FEW DAYS AGO. USING EYE DROPS NEEDED. WILL CONTINUE TO MONITOR.
[2024-05-07 20:15] VITALS: BP 121/66
[2024-05-08 08:41] VITALS: BP 131/78
[2024-05-08] MEDS ORDERED: SERT100 PO (11:39)
--- NOTE | 2024-05-08 14:17 | NUR ---
DISCHARGE SUMMARY PT AxOx4. PLEASANT AND COOPERATIVE WITH CARE. PT IS DISCHARGING HOME TODAY. PT HAS DENIED SI/AVD THIS SHIFT. HE HAS PARTICIPATED IN GROUPS AND MINGLED WITH PEERS/STAFF AROUND THE UNIT. BELONGINGS RETURNED. PT SIGNED BELONGINGS LOG. DISCUSSED DC INSTRUCTIONS WITH THE PATIENT INCLUDING FOLLOW UP APPOINTMENTS, DC MED LIST AND PT EDUCATION ON DIAGNOSIS AND NEW MEDS. PT VERBALIZES UNDERSTANDING. PT SAFELY ESCORTED TO [facility] WITH [facility].
== END 2024-05-08 14:16 | disposition home or self-care (01) | DRG 885 ==
LOC: BHU 16:57
PROVIDERS: ADMIT Student in an Organized Health Care Education/Training Program
DX: F33.2 Major depressive disorder, recurrent severe without psychotic features (principal); Z88.0 Allergy status to penicillin; Z88.8 Allergy status to other drugs, medicaments and biological substances; Z79.899 Other long term (current) drug therapy
CPT/HCPCS: 93005; 93010; A9270

== ENCOUNTER → 2025-07-16 | Outpatient (CLI) | payer OTHER ==
[~2025-07-16] MED LIST changes: +SERT100 PO
[2025-07-16 17:51] LABS: BASOPHILS ABSOLUTE AUTO 0.05 K/mm3 (0.00-0.23); BASOPHILS PERCENT AUTO 1 % (0-2); EOSINOPHILS ABSOLUTE AUTO 0.06 K/mm3 (0.00-0.68); EOSINOPHILS PERCENT AUTO 1 % (0-6); Hematocrit 44.8 % (37.0-53.0); Hemoglobin 15.2 g/dL (13.5-17.5); IMMATURE GRAN ABSOLUTE AUTO 0.01 K/mm3 (0.00-0.10); IMMATURE GRAN PERCENT AUTO 0 % (0-1); LYMPHOCYTES ABSOLUTE AUTO 2.34 K/mm3 (0.84-5.20); LYMPHOCYTES PERCENT AUTO 47 % (21-46); MONOCYTES ABSOLUTE AUTO 0.41 K/mm3 (0.16-1.47); MONOCYTES PERCENT AUTO 8 % (4-13); Mean Corpuscular HGB Conc 33.9 g/dL (31.5-36.5); Mean Corpuscular Volume 88 fL (80-100); NEUTROPHILS ABSOLUTE AUTO 2.12 K/mm3 (1.96-9.15); NEUTROPHILS PERCENT AUTO 43 % (41-73); NRBC ABSOLUTE 0.00 K/mm3 (0.00-0.02); NRBC Auto 0.0 /100 WBC (0.0-0.2); Platelet Count 231 K/mm3 (150-400); RDW Coefficient Variation 12.9 % (11.7-14.2); RDW Standard Deviation 41.4 fL (35.1-46.3)
[2025-07-16 18:49] LABS: Alanine Aminotransfer (ALT/SGP 69 U/L (12-78); Albumin, Blood 4.0 g/dL (3.4-5.0); Albumin/Globulin Ratio 1.3 (0.8-1.8); Anion Gap 7 mmol/L (3-11); Aspartate Aminotrans (AST/SGOT 27 U/L (12-37); Bilirubin, Total 0.3 mg/dL (0.1-1.0); Blood Urea Nitrogen 13 mg/dL (8-24); CHOL/HDL RATIO 5.5; CO2, Blood 29 mmol/L (21-32); Calcium, Blood 9.0 mg/dL (8.5-10.1); Chloride, Blood 104 mmol/L (98-108); Cholesterol 224 mg/dL (50-200); Creatinine, Blood 0.84 mg/dL (0.60-1.20); Globulin, Blood 3.0 g/dL (2.2-4.0); Glucose, Blood 91 mg/dL (70-99); HDL Cholesterol 41 mg/dL (>39); LDL/HDL RATIO 3.4; Low Density Lipoprotein Chol 138 mg/dL (0-110); Potassium, Blood 4.0 mmol/L (3.5-5.5); Sodium, Blood 136 mmol/L (136-145); Total Protein, Blood 7.0 g/dL (6.4-8.2); Triglycerides 225 mg/dL (30-160); Very Low Density Lipoprot Chol 45 mg/dL (6-32)
== END ==
LOC: LAB 16:09 → LAB SHORT 16:09
PROVIDERS: Student in an Organized Health Care Education/Training Program
DX: E78.2 Mixed hyperlipidemia (principal); J45.30 Mild persistent asthma, uncomplicated; Z13.1 Encounter for screening for diabetes mellitus
CPT/HCPCS: 80053; 80061; 83036; 85025